=== PATIENT | male | born 1975 | race Caucasian/White ===

== ENCOUNTER → 2017-05-26 | Outpatient (CLI) | payer OTHER ==
[2017-05-27 15:20] LABS: ACROSOM DEFECT 4.5 % (()); DOUBLE FORM 0.5 % (()); HEAD SHAPE ABNORMAL 24.5 % (()); MOTILE/EJACULATE 41.4 x10(6) (>=9.0); MOTILE/mL 18.8 x10(6) (>=6.0); MOTILITY 28 % (>=40); SEMEN CONTAINER TYPE 50 mL Conical (()); SPERM/ML 67.1 x10(6) (>=15.0); STRICT MORPH % NORMAL 11.5 % (>=4.5); STUDY TYPE Semen (()); SUPRAVITAL STAIN 38 % live (>=58)
== END ==
LOC: CLAB 09:17
DX: N46.9 Male infertility, unspecified (principal)
CPT/HCPCS: 89310